=== PATIENT | female | born 2000 | race Caucasian/White ===

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

== ENCOUNTER 2020-11-16 23:01 | Inpatient (IN) ==
[2020-11-16] MEDS ORDERED: ONDANSETRON HCL/PF 2 MG/ML VIAL IV ONE (23:30)
[2020-11-16] MEDS ORDERED: NORMAL SALINE 1,000 ML IV ONE (23:31)
[2020-11-16 23:36] LABS: Urine Bilirubin Negative (NEGATIVE); Urine Blood 50 /ul (NEGATIVE); Urine Ketone Negative (NEGATIVE); Urine Nitrite Negative (NEGATIVE); Urine Protein Negative (NEGATIVE); Urine Urobilinogen Normal (NORMAL)
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
[2020-11-16 23:42] LABS: Hematocrit 38.8 % (37.0-47.0); Hemoglobin 13.2 gm/dL (12.5-16.0); Mean Cell Volume 84.7 fl (78-100); Mean Corpuscular Hemoglobin 28.8 pg (27-31); Mean Platelet Volume 10.1 fl (8-12.5); Neutrophil % 95.2 % (42-75.0); Platelet Count 254 K/mm3 (150-450); Red Blood Count 4.58 M/mm3 (4.2-5.4); Red Cell Distribution Width 12.8 % (11.5-14.0); White Blood Count 16.8 K/mm3 (4.0-10.5)
[2020-11-16 23:44] LABS: Urine Appearance Clear (CLEAR); Urine Bacteria 1+; Urine Color Dark Yellow
[2020-11-16 23:56] LABS: Albumin * 3.9 gm/dl (3.4-5.0); Anion Gap 13.2 mmol/L (6.8-13.8); BUN/Creatinine Ratio 14.3 (9.0-21.6); Bilirubin, Total 0.5 mg/dL (0.0-1.1); Ca. Corrected For Albumin 8.3 mg/dL (8.4-10.2); Calcium * 8.5 mg/dL (7.9-10.9); Carbon Dioxide 23.8 mmol/L (24-32.6); Total Protein 7.4 gm/dL (6.2-8.2)
[2020-11-17] MEDS ORDERED: cefTRIAXone SODIUM 1,000 MG/100 ML BAG IV ONE (00:01)
[2020-11-17] MEDS ORDERED: KETOROLAC TROMETHAMINE 30 MG/ML VIAL IV ONE (00:18)
[2020-11-17] MEDS ORDERED: ONDANSETRON HCL/PF 2 MG/ML VIAL IV ONE (00:18)
[2020-11-17] MEDS ORDERED: ACETAMINOPHEN 1,000 MG/100 ML BTL IV ONE (00:29)
[2020-11-17] MEDS: NORMAL SALINE 1,000 ML IV PRN ×5 (00:53→21:26)
[2020-11-17] MEDS ORDERED: diphenhydrAMINE HCL 50 MG/ML VIAL IV ONE (02:03)
[2020-11-17] MEDS ORDERED: METHYLPREDNISOLONE SOD SUCC/PF 125 MG/2 ML VIAL IV ONE (02:08)
[2020-11-17] MEDS ORDERED: NOREPINEPHRINE BITARTRATE 4 MG in DEXTROSE 5 % IN WATER 496 ML IV PRN ×2 (02:43)
[2020-11-17] MEDS ORDERED: DIATRIZOATE MEGLUMINE, SODIUM 30 ML BTL ONE (11:47)
[2020-11-17] MEDS ORDERED: DIATRIZOATE MEGLUMINE, SODIUM 30 ML BTL PO ONE (11:54)
[2020-11-17] MEDS ORDERED: ACETAMINOPHEN 325 MG TABLET PO PRN (17:00)
[2020-11-17] MEDS ORDERED: VANCOMYCIN HCL 1 GM in DEXTROSE 5 % IN WATER 250 ML IV SCH ×2 (17:30)
[2020-11-17] MEDS: CEFEPIME HCL 1 GM in DEXTROSE 5 % IN WATER 100 ML IV SCH ×2 (17:50)
[2020-11-17] MEDS ORDERED: ONDANSETRON HCL/PF 2 MG/ML VIAL IV PRN (18:13)
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
[2020-11-17] MEDS: VANCOMYCIN/WATER FOR INJ (PEG) 1 GM/200 ML BAG IV SCH (18:40)
--- NOTE | 2020-11-17 20:21 | CONS ---
[facility] - General Date of Service: 11/17/20 Narrative: Patient states she began having sudden onset of lower abdominal pain yesterday which became unbearable causing her to present to the emergency room for evaluation. She admits to nausea, fever, chills, malaise. Denies emesis, dysuria, vaginal bleeding or discharge. significant CT findings: "The uterus and adnexal structures appear mildly prominent with a small amount of fluid within the cervix. The IUD extends through the external wall of the uterine fundus. Mild fat stranding and edema are observed around the pelvic piercing." as well as, para-aortic lymphadenopathy. Patient had a Mirena IUD placed in January 2020 which she remembers as being very painful with insertion. After IUD placement she continued to have monthly cycles which were rehabilitation director, but slightly more uncomfortable. Sexual activity was also uncomfortable. She does not recall any specific incident which could attribute to the cause of her recent pain. Source: patient, RN/MD, old records Exam Limitations: no limitations - History of Present Illness Timing/Duration: 24 hours Severity: severe Modifying Factors - (Worsens): Reports: movement Modifying Factors - (Improves): Reports: immobilization, rest Associated Symptoms: fever/chills, nausea, weakness Allergies/Adverse Reactions: Allergies No Known Allergies Allergy (Verified 11/17/20 06:57) Home Medications: Home Medications Medication Instructions Recorded Last Taken levothyroxine 150 mcg tablet 150 mcg PO DAILY #30 tab 10/03/20 Unknown Date of Service: 01/15/20 Procedures Mirena IUD placement 01/15/20 by Sandrita Hardy in [facility] clinic Closure of skin and subcutaneous tissue of other sites (12/17/05) Delivery of Products of Conception, External Approach (08/02/19) Drainage of Amniotic Fluid, Therapeutic from Products of Conception, Via Natural or Artificial Opening (08/02/19) Introduction of Other Hormone into Peripheral Vein, Percutaneous Approach (08/02/19) Repair Perineum Muscle, Open Approach (08/02/19) Tonsillectomy with adenoidectomy (06/03/14) Medications - Medications Current Medications: Current Medications Sodium Chloride (Sodium Chloride 0.9%) 1,000 mls @ 126 mls/hr IV .[id number] PRN PRN Reason: HYDRATION Stop: 12/17/20 03:10 Last Admin: 11/17/20 11:10 Dose: 126 mls/hr Documented by: Cefepime HCl 1 gm/ Dextrose/ (Water) 100 mls @ 200 mls/hr IV Q12H [facility]; Protocol Stop: 12/17/20 17:01 Last Infusion: 11/17/20 18:40 Dose: Infused Documented by: Vancomycin/PEG/NADA/Lysine/Water (Vancomycin) 1 gm in 200 mls @ 100 mls/hr IV Q12H [facility] Stop: 12/17/20 17:31 Last Admin: 11/17/20 18:40 Dose: 100 mls/hr Documented by: Review of Systems - Review of Systems Generalized/Overall Review: Present: Weakness, Malaise EENTM: Present: No Symptoms Reported Respiratory: Present: No Symptoms Reported Cardiac: Present: No Symptoms Reported Abdominal: Present: Abdominal Pain Genitourinary: Present: No Symptoms Reported Musculoskeletal: Present: No Symptoms Reported Neurological: Present: Weakness Skin: Present: No Symptoms Reported Endocrine: Present: No Symptoms Reported Physical Examination - Exam Narrative: Patient was examined by me late in the afternoon around 1645. She states she is feeling much better than she was a few hours earlier. She still complains of some moderate abdominal discomfort but denies nausea, vomiting, fever, or chills. Vital Signs: Vital Signs - Last Taken Temp 37.3 C 11/17/20 17:55 Pulse 98 11/17/20 17:55 Resp 24 H 11/17/20 17:55 BP 114/57 11/17/20 17:55 Pulse Ox 99 11/17/20 17:55 O2 Oxygen Delivery Method Room Air Constitutional: Present: Alert, Oriented x3, Cooperative, Mild distress ENT Exam: Present: hearing grossly normal Breasts: Present: Exam deferred Respiratory: Present: no respiratory distress Cardiovascular/Chest: Present: regular rate, rhythm, no edema Abdomen: Present: soft, no rebound tenderness, tender - Lower abdomen /Rectal: Present: External genitalia normal, discharge - normal, Other - Cervix - NT, mild cervical motion tenderness. IUD strings 4cm from os. Min white/yellow mucusy d/c. Normal vaginal d/c. Extremity: Present: no pedal edema, no calf tenderness Skin Exam: Present: normal color, warm/dry, no cyanosis Neurologic: Present: alert, normal mood/affect, oriented x 3 Appearance: Present: appropriate appearance, appropriate insight Eye contact: Present: cooperative, good eye contact Thoughts: Present: normal thought pattern, normal mood /affect - Results and Findings: Lab/Microbiology results last 24 hrs: Abnormal/Pending Laboratory Last 24 HRS 11/17/20 11/16/20 11/16/20 02:40 23:38 23:38 WBC Immature Gran # (Auto) Neutrophils % Lymphocytes % Neutrophils # Lymphocytes # Potassium 3.0 L Carbon Dioxide 23.8 L Random Glucose 131 H Lactic Acid, Venous 2.3 H* Calcium Adj for Albumin 8.3 L Lipase 41 L TSH 0.267 L Urine Blood Ur Leukocyte Esterase Urine RBC Urine WBC Urine Bacteria 11/16/20 11/16/20 23:38 23:10 WBC 16.8 H Immature Gran # (Auto) 0.07 H Neutrophils % 95.2 H Lymphocytes % 1.4 L Neutrophils # 16.0 H Lymphocytes # 0.23 L Potassium Carbon Dioxide Random Glucose Lactic Acid, Venous Calcium Adj for Albumin Lipase TSH Urine Blood 50 H Ur Leukocyte Esterase 500 H Urine RBC 10-25 H Urine WBC 10-25 H Urine Bacteria 1+ H - Assessments/Findings (1) Uterine perforation by intrauterine contraceptive device Diagnosis(s): Procedure: A time out was done verifying correct patient identity, correct site, and correct procedure to be done prior to the procedure. The patient was placed in dorsal lithotomy position. A speculum was placed in the vagina and the cervix was visualized. The IUD strings were visualized protruding approximately 4cm from the cervical os. Using uterine dressing forceps, the strings were grasped and the IUD removed intact. A moderate amount of effort was required to remove the IUD. The patient tolerated the procedure with moderate discomfort. Uterine perforation from IUD could be an incidental finding, however, CT scan showing surrounding erythema and fat stranding makes this highly suspicious for the etiology of signs/symptoms. Concern for possible bowel perforation discussed with Dr. Adam. X-ray and CT findings do not support this at present. If patient does not clinically continue to improve, would suggest repeating CT scan again to look for perforation. If GC/chlamydia cultures were not obtained prior to starting antibiotics, would recommend antibiotic coverage for these organisms. Problem: Acute Qualifiers: Encounter type: initial encounter Qualified Code(s): T83.39XA - Other mechanical complication of intrauterine contraceptive device, initial encounter (2) Hypothyroidism Problem: Acute (3) Peritonitis Problem: Acute (4) Sepsis Problem: Acute Qualifiers: Sepsis type: sepsis due to unspecified organism Sepsis acute organ dysfunction status: with acute organ dysfunction Severe sepsis acute organ dysfunction type: unspecified Severe sepsis shock status: with septic shock Qualified Code(s): A41.9 - Sepsis, unspecified organism; R65.21 - Severe sepsis with septic shock
[2020-11-18] MEDS: CEFEPIME HCL 1 GM in DEXTROSE 5 % IN WATER 100 ML IV SCH ×4 (05:22→16:00)
[2020-11-18] MEDS: NORMAL SALINE 1,000 ML IV PRN ×2 (05:23→15:56)
[2020-11-18] MEDS: VANCOMYCIN/WATER FOR INJ (PEG) 1 GM/200 ML BAG IV SCH (06:47)
[2020-11-18] MEDS: LEVOTHYROXINE SODIUM 125 MCG TABLET PO SCH (06:50)
[2020-11-18] MEDS ORDERED: LEVOTHYROXINE SODIUM 150 MCG TABLET PO SCH (07:00)
[2020-11-18 09:16] LABS: Hematocrit 30.9 % (37.0-47.0); Hemoglobin 10.6 gm/dL (12.5-16.0); Mean Cell Volume 84.7 fl (78-100); Mean Corpuscular Hgb Conc 34.3 g/dl (32-36); Mean Platelet Volume 10.4 fl (8-12.5); Platelet Count 205 K/mm3 (150-450); Red Blood Count 3.65 M/mm3 (4.2-5.4); Red Cell Distribution Width 13.3 % (11.5-14.0); White Blood Count 18.8 K/mm3 (4.0-10.5)
[2020-11-18 09:22] LABS: Total Cells Counted 100
[2020-11-18 09:35] LABS: Albumin * 2.4 gm/dl (3.4-5.0); Anion Gap 13.6 mmol/L (6.8-13.8); BUN/Creatinine Ratio 12.3 (9.0-21.6); Bilirubin, Total 0.2 mg/dL (0.0-1.1); Ca. Corrected For Albumin 8.5 mg/dL (8.4-10.2); Calcium * 7.5 mg/dL (7.9-10.9); Carbon Dioxide 22.4 mmol/L (24-32.6); Total Protein 5.4 gm/dL (6.2-8.2)
[2020-11-18] MEDS ORDERED: diphenhydrAMINE HCL 50 MG/ML VIAL IV ONE (09:40)
[2020-11-18] MEDS ORDERED: POTASSIUM CHLORIDE 20 MEQ/15 ML UDC PO SCH (09:45)
[2020-11-18 10:00] LABS: Band 7 % (0-2.0); Eosinophil 2 % (0-3); Lymphocyte 4 % (20-51); Monocyte 2 % (0-9); Neutrophil 85 % (42-75)
[2020-11-18 10:02] LABS: Platelet Estimate Normal (NORMAL)
[2020-11-18 10:03] LABS: RBC Morphology Normal (NORMAL)
[2020-11-18] MEDS ORDERED: POTASSIUM CHLORIDE 20 MEQ/15 ML UDC PO ONE (10:15)
[2020-11-18] MEDS ORDERED: KETOROLAC TROMETHAMINE 30 MG/ML VIAL IV ONE (13:30)
[2020-11-18] MEDS: VANCOMYCIN/WATER FOR INJ (PEG) 1.5 GM/300 ML BAG IV SCH (17:28)
--- NOTE | 2020-11-18 23:51 | PN ---
Subjective - Date and Time Seen Date: 11/18/20 Time: 23:25 Subjective Narrative: Patient states that she is feeling " so much better" today then she was yesterday. IUD removed yesterday without issue and she was started on broad spectrum antibiotics for peritinitis. HEr WBC did go up mildly but I think this was due to the steroids she received in the ER for her hives. She has been afebrile for over 40 hours now. She is tolerating PO. Her blood pressure is stable. No longer having any abd pian. Objective - Review of Systems Generalized/Overall Review: Reports: No Symptoms Reported EENTM: Reports: No Symptoms Reported Respiratory: Reports: No Symptoms Reported Cardiac: Reports: No Symptoms Reported Abdominal: Reports: Abdominal Pain - minimal and much improved. Denies: Nausea, Vomiting Genitourinary Symptoms: Reports: No Symptoms Reported Musculoskeletal Complaints: Reports: No Symptoms Reported Neurological: Reports: No Symptoms Reported Skin: Reports: No Symptoms Reported - Vitals Vitals: Last Vital Signs Temp 36.3 C 11/18/20 18:35 Pulse 90 11/18/20 22:01 Resp 20 11/18/20 18:35 BP 102/57 11/18/20 18:35 Pulse Ox 98 11/18/20 18:35 - Abnormal Lab Findings Abnormal Lab Findings: Abnormal Lab Results 11/18/20 11/18/20 Range/Units 09:12 09:12 WBC 18.8 H (4.0-10.5) K/mm3 RBC 3.65 L (4.2-5.4) M/mm3 Hgb 10.6 L (12.5-16.0) gm/dL Hct 30.9 L (37.0-47.0) % Neutrophils % (Manual) 85 H (42-75) % Band Neuts % (Manual) 7 H (0-2.0) % Lymphocytes % (Manual) 4 L (20-51) % Neutrophils # (Manual) 16.0 H (1.3-6.0) K/mm3 Lymphocytes # (Manual) 0.8 L (1.5-3.5) k/mm3 Sodium 144 H (132-142) mmol/L Plasma Sodium 144 H (130-142) mmol/L Potassium 3.0 L (3.4-4.6) mmol/L Chloride 111 H (97-106) mmol/L Carbon Dioxide 22.4 L (24-32.6) mmol/L Calcium 7.5 L (7.9-10.9) mg/dL Total Protein 5.4 L (6.2-8.2) gm/dL Albumin 2.4 L (3.4-5.0) gm/dl - Exam Constitutional: Present: Alert, Oriented x3, Cooperative - a, Well developed ENT Exam: Present: hearing grossly normal Neck: Present: non-tender, supple Respiratory: Present: lungs clear, normal breath sounds Cardiovascular/Chest: Present: regular rate, rhythm, no murmur Abdomen: Present: soft, nondistended, tender - mkildly, diffuse, much improved Skin Exam: Present: normal color, warm/dry Neurologic: Present: alert, normal mood/affect, oriented x 3 Appearance: Present: appropriate appearance, appropriate insight Eye contact: Present: cooperative, good eye contact Thoughts: Present: normal thought pattern Assessment/Plan Plan Narrative: She is much improved following the removal of the IUD. Dr. Banerjee recommends she be switched to Doxy and Flagyl after being afebrile for at least 48 hrs. Wi ll continue vanc and cefepime for another 24 hrs. If tomorrow she is still doing as well as she then will give her 1 time dose of azithromycin as well as flagyl and doxy and discharge her home. Will continue her fluids until the bag she is on is empty. Repeat CBC and cmp in the am. WBC did go up some but I think this was more from the steroids then from the infection. Tylenol ordered for fevers. She did have a headache today. Toradol gvien for this. Headache improved. She is tolerating PO well. SCDs for DVT ppx. Again she feels much better. Nurse to call with questions or concerns. Likely discharge home tomorrow. - Problems/Diagnosis (1) Peritonitis Problem: Acute (2) Uterine perforation by intrauterine contraceptive device Problem: Acute Qualifiers: Encounter type: initial encounter Qualified Code(s): T83.39XA - Other mechanical complication of intrauterine contraceptive device, initial encounter (3) Septic shock Problem: Acute (4) Sepsis Problem: Acute Qualifiers: Sepsis type: sepsis due to unspecified organism Sepsis acute organ dysfunction status: with acute organ dysfunction Severe sepsis acute organ dysfunction type: unspecified Severe sepsis shock status: with septic shock Qualified Code(s): A41.9 - Sepsis, unspecified organism; R65.21 - Severe sepsis with septic shock (5) Hypothyroidism Problem: Acute
[2020-11-19] MEDS: CEFEPIME HCL 1 GM in DEXTROSE 5 % IN WATER 100 ML IV SCH ×2 (04:57)
[2020-11-19] MEDS: VANCOMYCIN/WATER FOR INJ (PEG) 1.5 GM/300 ML BAG IV SCH (05:29)
[2020-11-19] MEDS: LEVOTHYROXINE SODIUM 125 MCG TABLET PO SCH (07:02)
[2020-11-19] MEDS ORDERED: diphenhydrAMINE HCL 25 MG CAPSULE PO ONE (07:30)
[2020-11-19 07:39] LABS: Hematocrit 31.7 % (37.0-47.0); Hemoglobin 10.3 gm/dL (12.5-16.0); Mean Cell Volume 87.6 fl (78-100); Mean Corpuscular Hemoglobin 28.5 pg (27-31); Mean Corpuscular Hgb Conc 32.5 g/dl (32-36); Mean Platelet Volume 10.9 fl (8-12.5); Neutrophil # 8.1 K/mm3 (1.3-6.0); Platelet Count 205 K/mm3 (150-450); Red Blood Count 3.62 M/mm3 (4.2-5.4); Red Cell Distribution Width 13.5 % (11.5-14.0); White Blood Count 11.2 K/mm3 (4.0-10.5)
[2020-11-19 08:28] LABS: Albumin * 2.5 gm/dl (3.4-5.0); Anion Gap 17.7 mmol/L (6.8-13.8); BUN/Creatinine Ratio 11.3 (9.0-21.6); Bilirubin, Total 0.2 mg/dL (0.0-1.1); Calcium * 8.1 mg/dL (7.9-10.9); Potassium 3.7 mmol/L (3.4-4.6); Total Protein 5.2 gm/dL (6.2-8.2)
--- NOTE | 2020-11-19 11:21 | DS ---
(1) Uterine perforation by intrauterine contraceptive device Problem: Resolved Qualifiers: Encounter type: initial encounter Qualified Code(s): T83.39XA - Other mechanical complication of intrauterine contraceptive device, initial encounter (2) Peritonitis Problem: Resolved (3) Pelvic inflammatory disease Problem: Acute (4) Septic shock Problem: Resolved (5) Hives Problem: Chronic Date of Discharge:: 11/19/20 Hospital Course: Patient admitted on 11/17/20 for abdominal pain, diarrhea, body aches, and fever. She was initially septic with fever, hypotension requiring levophed, tachycardic and tachypneic. She had an elevated lactate of 2.3. She was given aggressive fluids and IV cefepime and vancomycin for 48 hours. Will change to flagyl and doxycycline. CT abdomen/pelvis showed an IUD perforating her uterine wall with surrounding fat stranding and edema. [employer] removed the IUD, which was placed in January 2020 with significant discomfort. Her WBC and abdominal pain improved after its removal. She had some hives, which is chronic for her, and responds t o benadryl. She was able to eat and drink, and go to the bathroom, and felt comfortable going home on the day of DC. Our pharmacists were able to help with latest GC/chlamydia treatment guideline, which is doxycycline bid for 7 days. Will DC with this and flagyl for 14 days to cover for pelvic inflammatory disease. She is considering the Nuvaring for control, and will discuss this with her PCP at hospital follow up. Discussed using condoms for control in the interim. Procedures Performed: see notes below - IUD removal Results and Findings: Pending Mircobiology Results 11/17/20 00:00 Blood Blood Culture - Preliminary NO GROWTH AFTER 48 HOURS 11/17/20 00:35 Blood Blood Culture - Preliminary NO GROWTH AFTER 48 HOURS Lab Pending Results 11/16/20 23:10: Urine Color Dark yellow, Urine Appearance Clear, Urine pH 6.0, Ur Specific [place] 1.010, Urine Protein Negative, Urine Glucose (UA) Negative, Urine Ketones Negative, Urine Blood 50 H, Urine Nitrate Negative, Urine Bilirubin Negative, Urine Urobilinogen Normal, Ur Leukocyte Esterase 500 H, Urine RBC 10-25 H, Urine WBC 10-25 H, Ur Epithelial Cells 0-5, Urine Bacteria 1+ H, Urine Culture Comments Culture to follow 11/16/20 23:38: Serum HCG, Qual Negative 11/16/20 23:38: WBC 16.8 H, RBC 4.58, Hgb 13.2, Hct 38.8, MCV 84.7, MCH 28.8, MCHC 34.0, RDW 12.8, Plt Count 254, MPV 10.1, Immature Gran % (Auto) 0.40, Immature Gran # (Auto) 0.07 H, Neutrophils % 95.2 H, Lymphocytes % 1.4 L, Monocytes % 2.5, Eosinophils % 0.4, Basophils % 0.1, Nucleated RBC % 0.0, Neutrophils # 16.0 H, Lymphocytes # 0.23 L, Monocytes # 0.4, Eosinophils # 0.1, Absolute Basophils 0.0 11/16/20 23:38: Sodium 137, Plasma Sodium 137, Potassium 3.0 L, Chloride 103, Carbon Dioxide 23.8 L, Anion Gap 13.2, BUN 12, Creatinine 0.84, Est GFR (Non-Af Amer) 92, BUN/Creatinine Ratio 14.3, Random Glucose 131 H, Calcium 8.5, Calcium Adj for Albumin 8.3 L, Total Bilirubin 0.5, AST 21, ALT 22, Alkaline Phosphatase 83, Total Protein 7.4, Albumin 3.9, Amylase 38, Lipase 41 L 11/16/20 23:38: Lactic Acid, Venous 2.3 H* 11/16/20 23:50: Group A Strep Rapid Negative 11/17/20 01:21: SARS-CoV-2 (PCR) Not detected 11/17/20 02:39: Lactic Acid, Venous 1.2 11/17/20 02:40: TSH 0.267 L 11/17/20 11:58: Influenza Type A Ag Negative, Influenza Type B Ag Negative 11/18/20 09:12: WBC 18.8 H, RBC 3.65 L, Hgb 10.6 L, Hct 30.9 L, MCV 84.7, MCH 29.0, MCHC 34.3, RDW 13.3, Plt Count 205, MPV 10.4, Neutrophils % (Manual) 85 H, Band Neuts % (Manual) 7 H, Lymphocytes % (Manual) 4 L, Monocytes % (Manual) 2, Eosinophils % (Manual) 2, Neutrophils # (Manual) 16.0 H, Lymphocytes # (Manual) 0.8 L, Monocytes # (Manual) 0.4, Eosinophils # (Manual) 0.4, Platelet Estimate Normal, RBC Morphology Normal 11/18/20 09:12: Sodium 144 H, Plasma Sodium 144 H, Potassium 3.0 L, Chloride 111 H, Carbon Dioxide 22.4 L, Anion Gap 13.6, BUN 10, Creatinine 0.81, Est GFR (Non- Af Amer) 96, BUN/Creatinine Ratio 12.3, Random Glucose 95, Calcium 7.5 L, Calcium Adj for Albumin 8.5, Total Bilirubin 0.2, AST 42, ALT 33, Alkaline Phosphatase 58, Total Protein 5.4 L, Albumin 2.4 L 11/19/20 07:30: WBC 11.2 H D, RBC 3.62 L, Hgb 10.3 L, Hct 31.7 L, MCV 87.6, MCH 28.5, MCHC 32.5, RDW 13.5, Plt Count 205, MPV 10.9, Immature Gran % (Auto) 0.70 H, Immature Gran # (Auto) 0.08 H, Neutrophils % 72.0, Lymphocytes % 17.1 L, Monocytes % 4.2, Eosinophils % 5.8 H, Basophils % 0.2, Nucleated RBC % 0.0, Neutrophils # 8.1 H, Lymphocytes # 1.92, Monocytes # 0.5, Eosinophils # 0.7, Absolute Basophils 0.0 11/19/20 07:30: Sodium 142, Plasma Sodium 142, Potassium 3.7 D, Chloride 109 H, Carbon Dioxide 19.0 L, Anion Gap 17.7 H, BUN 7, Creatinine 0.62, Est GFR (Non-Af Amer) 130 D, BUN/Creatinine Ratio 11.3, Random Glucose 85, Calcium 8.1, Calcium Adj for Albumin 9.0, Total Bilirubin 0.2, AST 55 H, ALT 65, Alkaline Phosphatase 84, Total Protein 5.2 L, Albumin 2.5 L Discharge Location: Home Disposition: Home self-care Condition: Good Discharge Activity: Activity as tolerated Discharge Diet: General/regular food Referrals: Enio Adam DO [Primary Care Provider] - One Week Prescriptions (Any new or edited meds): Doxycycline Hyclate 100 mg PO BID #28 tablet.dr Transmission Status: Pending to [facility] #[id number] metroNIDAZOLE [Flagyl] 500 mg PO Q12H #28 tab Transmission Status: Pending to [facility] [employer] #[id number] Complete Home Medications List: Complete Home Medication List: levothyroxine 150 mcg tablet 150 mcg PO DAILY #30 tab 10/03/20 Doxycycline Hyclate 100 mg PO BID #28 tablet. 11/19/20 metroNIDAZOLE [Flagyl] 500 mg PO Q12H #28 tab 11/19/20 Forms: Patient Portal Registration
[2020-11-19 13:59] VITALS: BP 126/70
[2020-11-20] MEDS ORDERED: VANCOMYCIN HCL LEVEL XX ONE (17:00)
== END 2020-11-19 14:25 | disposition home or self-care (01) | DRG 871 ==
LOC: ER 23:01 → SCU 11-17 04:17 → MS 11-17 13:36
PROVIDERS: ADMIT Family Medicine; ATTEND Family Medicine